=== PATIENT | female | born 2000 | race Caucasian/White ===

== ENCOUNTER 2019-01-04 18:28 | Emergency (ER) | payer OTHER ==
[~2019-01-04] VITALS: Ht 180.3 cm; Wt 100.0 kg
[2019-01-04 18:38] VITALS: BP 121/70
== END 2019-01-04 19:29 | disposition home or self-care (01) ==
LOC: ED 19:23
DX: J02.0 Streptococcal pharyngitis (principal)
CPT/HCPCS: 99283

== ENCOUNTER 2019-01-12 15:49 | Emergency (ER) | payer OTHER ==
[~2019-01-12] VITALS: Ht 180.3 cm; Wt 99.7 kg
--- NOTE | 2019-01-12 16:00 | NUR ---
C/O labial abscess. C/O of pain and erythema. Will continue to monitor.
[2019-01-12 16:42] VITALS: BP 133/83
[2019-01-12] MEDS ORDERED: LIDOCAINE-MPF 1%, 5ML ONE (16:48)
[2019-01-12] MEDS ORDERED: LIDOCAINE 1%, 10ML INFIL ONE (17:00)
--- NOTE | 2019-01-12 17:15 | NUR ---
GUSTABO Mckeon assisted JEAN Reynolds with abscess drainage.
--- NOTE | 2019-01-12 17:42 | NUR ---
Patient/Caregiver given discharge instructions and they have confirmed that they understand the instructions. Patient ambulatory with steady gait.
== END 2019-01-12 17:43 | disposition home or self-care (01) ==
LOC: ED 16:48
DX: N76.4 Abscess of vulva (principal)
CPT/HCPCS: 56405; 99284

== ENCOUNTER 2019-01-25 18:56 | Emergency (ER) | payer OTHER ==
[~2019-01-25] VITALS: Ht 180.3 cm; Wt 102.0 kg
[2019-01-25 19:02] VITALS: BP 145/95
== END 2019-01-25 19:39 | disposition home or self-care (01) ==
LOC: ED 19:36
DX: L40.0 Psoriasis vulgaris (principal)
CPT/HCPCS: 99283